=== PATIENT | female | born 1950 | race Caucasian/White ===

== ENCOUNTER → 2016-09-28 | Outpatient (CLI) | payer MEDICARE ==
[2016-09-28 12:34] LABS: Blood Urea Nitrogen 11 mg/dL (7-17); Non-African American GFR(MDRD) >60 (>60 ml/min/1.73 sqM)
--- NOTE | 2016-09-28 14:26 | CT ---
EXAMINATION TYPE: CT abdomen pelvis w con DATE OF EXAM: 09/28/2016 1:54 PM HISTORY: Diarrhea for [address] DLP: 860.7mGycm Automated Exposure Control for Dose Reduction was Utilized. CONTRAST: CT scan of the abdomen and pelvis is performed with IV Contrast, patient injected with 100 mL of Omni paque 300. COMPARISON: None. FINDINGS: LUNG BASES: Linear atelectatic change and/or scarring in both lung bases is present. Heart size is up per limits of normal. LIVER/GB: Cholecystectomy clips are seen. PANCREAS: No significant abnormality is seen. SPLEEN: No significant abnormality is seen. ADRENALS: No significant abnormality is seen. KIDNEYS: Some scattered subcentimeter low dense lesions throughout in both kidneys are too small to c haracterize but presumed benign. BOWEL: The oral contrast only reaches level of the proximal transverse colon. There is no suspicious small or large bowel dilatation. There is fairly moderate prominence of fecal material in the transve rse colon. Surgical sutures from appendectomy are seen at base of cecum. UTERUS/ADNEXA: Uterus is surgically absent or markedly atrophic in appearance. Some scattered pelvic phleboliths are present. LYMPH NODES: No greater than 1cm abdominal or pelvic lymph nodes are appreciated. Scattered subcentim eter lymph nodes throughout the left-sided mesentery are present. OSSEOUS STRUCTURES: There is disc space narrowing with vacuum disc phenomenon at lumbosacral junction . There is some mild facet arthropathy in the lower lumbar spine. OTHER: No significant additional abnormality is seen. IMPRESSION: No bowel obstruction is present. Perhaps mild to moderate mid colonic fecal stasis otherw ise unremarkable study.
--- NOTE | 2016-09-29 09:23 | MM ---
Reason for exam: screening (asymptomatic). Last mammogram was performed 5 months ago. History: Patient is postmenopausal and is nulliparous. Family history of breast cancer in maternal grandmother. Benign ultrasound-guided core biopsy of the right breast, 2016. Benign cyst aspiration of the left breast. Physical Findings: A clinical breast exam by your physician is recommended on an annual basis and results should be correlated with mammographic findings. MG Screening Mammo w CAD Bilateral CC and MLO view(s) were taken. Prior study comparison: September 23, 2015, mammogram, performed at [facility]. September 10, 2014, mammogram, performed at [facility]. The breast tissue is heterogeneously dense. This may lower the sensitivity of mammography. Finding: There are typically benign round calcifications in the left breast. Previous mammotome biopsy in the right breast. There is no discrete abnormality. ASSESSMENT: Benign, BI-RAD 2 RECOMMENDATION: Routine screening mammogram of both breasts in 1 year.
== END | disposition home or self-care (01) ==
LOC: RADMAMWWP 10:25
PROVIDERS: ATTEND Family Medicine
DX: Z12.31 Encounter for screening mammogram for malignant neoplasm of breast (principal); R10.84 Generalized abdominal pain; R19.7 Diarrhea, unspecified
CPT/HCPCS: 82565; 84520; 74177; G0202; Q9967

== ENCOUNTER → 2017-01-05 | Outpatient (CLI) | payer MEDICARE ==
--- NOTE | 2017-01-05 11:16 | USB ---
Reason for exam: additional evaluation requested from prior study. History: Patient is postmenopausal and is nulliparous. Family history of breast cancer in maternal grandmother. Benign ultrasound-guided core biopsy of the right breast, 2016. Benign cyst aspiration of the left breast. Physical Findings: Nurse Summary: bilateral nodularity, all soft, movable (nurse ts). US Breast RT Right breast ultrasound includes all four quadrants, the retroareolar region and axilla. Finding demonstrates a 0.5 x 0.3 x 0.5cm mixed lesion at 11 o'clock, questionable clip and a 1.0 x 0.4 x 0.9cm mixed lesion at 11 o'clock, stable from 03/10/15. These results were verbally communicated with the patient and result sheet given to the patient on 01/05/17. ASSESSMENT: Probably benign, BI-RAD 3 RECOMMENDATION: Ultrasound of the right breast in 6 months.
== END | disposition home or self-care (01) ==
LOC: RADUSWWP 08:40
PROVIDERS: ATTEND Family Medicine
DX: R92.8 Other abnormal and inconclusive findings on diagnostic imaging of breast (principal)

== ENCOUNTER → 2017-03-29 | Outpatient (CLI) | payer MEDICARE ==
--- NOTE | 2017-03-29 10:57 | US ---
EXAMINATION TYPE: US venous doppler duplex LE DATE OF EXAM: 03/29/2017 10:46 AM COMPARISON: NONE CLINICAL HISTORY: Leg Swelling M79.89. h/o dvt in right leg 15 years ago, swelling after car travel r ecently, not on thinners, h/o vein stripping SIDE PERFORMED: TECHNIQUE: The lower extremity deep venous system is examined utilizing real time linear array sonog janina with graded compression, doppler sonography and color-flow sonography. VESSELS IMAGED: External Iliac Vein (EIV) Common Femoral Vein Deep Femoral Vein Greater Saphenous Vein * Femoral Vein Popliteal Vein Small Saphenous Vein * Proximal Calf Veins (* superficial vessels) Right Leg: Appears negative for DVT Left Leg: Appears negative for DVT tech impression to Dr Ayala on cell #[id number] Grayscale, color doppler, spectral doppler imaging performed of the deep veins of the bilateral lower extremities. There is normal flow, compressibility, vascular waveforms. IMPRESSION: No ultrasound evidence for acute DVT in either lower extremity.
== END | disposition home or self-care (01) ==
LOC: RADUSWWP 10:15
PROVIDERS: ATTEND Family Medicine
DX: M79.89 Other specified soft tissue disorders (principal)
CPT/HCPCS: 93970

== ENCOUNTER → 2017-05-29 | Outpatient (CLI) | payer MEDICARE ==
--- NOTE | 2017-05-30 08:23 | USB ---
Reason for exam: follow-up at short interval from prior study. History: Patient is postmenopausal and is nulliparous. Family history of breast cancer in maternal grandmother. Benign ultrasound-guided core biopsy of the right breast, 2016. Benign cyst aspiration of the left breast. Physical Findings: Nurse Summary: all soft, nodular, movable (nurse ts). US Breast RT Technologist: Deb Lew Right breast ultrasound includes all four quadrants, the retroareolar region and axilla. Finding demonstrates a 0.6 x 0.5 x 0.6cm mixed lesion at 11 o'clock and a 0.9 x 0.3 x 0.5cm mixed lesion at 11 o'clock. These results were verbally communicated with the patient and result sheet given to the patient on 05/29/17. ASSESSMENT: Probably benign, BI-RAD 3 RECOMMENDATION: Follow-up diagnostic mammogram of both breasts in 4 months. Back on schedule for September 2017. Ultrasound of the right breast in 4 months.
== END | disposition home or self-care (01) ==
LOC: RADUSWWP 15:12
PROVIDERS: ATTEND Family Medicine
DX: R92.8 Other abnormal and inconclusive findings on diagnostic imaging of breast (principal); R60.0 Localized edema; R06.02 Shortness of breath
CPT/HCPCS: 36415; 83880

== ENCOUNTER → 2017-10-27 | Outpatient (CLI) | payer MEDICARE ==
--- NOTE | 2017-10-27 10:30 | MM ---
Reason for exam: additional evaluation requested from prior study. Last mammogram was performed 1 year and 1 month ago. History: Patient is postmenopausal and is nulliparous. Family history of breast cancer in maternal grandmother. Benign ultrasound-guided core biopsy of the right breast, 2016. Benign cyst aspiration of the left breast. Physical Findings: Nurse did not find any significant physical abnormalities on exam. MG 3D Diag Mammo W/Cad BASIL Bilateral CC and MLO view(s) were taken. Prior study comparison: September 28, 2016, bilateral MG screening mammo w CAD. May 10, 2016, right breast MG 3d diag mammo w/cad RT. The breast tissue is heterogeneously dense. This may lower the sensitivity of mammography. Finding: There are typically benign round calcifications in the left breast. Previous mammotome biopsy in the right breast. These results were verbally communicated with the patient and result sheet given to the patient on 10/27/17. ASSESSMENT: Benign, BI-RAD 2 RECOMMENDATION: Routine screening mammogram of both breasts in 1 year.
== END ==
LOC: RADMAMWWP 08:28
PROVIDERS: ATTEND Family Medicine
DX: R92.8 Other abnormal and inconclusive findings on diagnostic imaging of breast (principal)
CPT/HCPCS: 77066; G0279

== ENCOUNTER → 2018-11-08 | Outpatient (CLI) | payer MEDICARE ==
--- NOTE | 2018-11-08 15:01 | MM ---
Reason for exam: additional evaluation requested from prior study. Last mammogram was performed 1 year ago. History: Patient is postmenopausal and is nulliparous. Family history of breast cancer in paternal grandmother at age 50. Benign ultrasound-guided core biopsy of the right breast, 2016. Benign cyst aspiration of the left breast. Physical Findings: Nurse did not find any significant physical abnormalities on exam. MG 3D Diag Mammo W/Cad BAISL Bilateral CC and MLO view(s) were taken. Prior study comparison: October 27, 2017, bilateral MG 3d diag mammo w/cad BASIL. September 28, 2016, bilateral MG screening mammo w CAD. The breast tissue is heterogeneously dense. This may lower the sensitivity of mammography. Benign calcifications in the left breast. No suspicious abnormality. Right biopsy marker noted. No significant new findings when compared with previous films. These results were verbally communicated with the patient and result sheet given to the patient on 11/08/18. ASSESSMENT: Benign, BI-RAD 2 RECOMMENDATION: Routine screening mammogram of both breasts in 1 year.
--- NOTE | 2018-11-08 15:08 | BD ---
EXAMINATION TYPE: Axial Bone Density DATE OF EXAM: 11/08/2018 CLINICAL HISTORY: Z78.0 Height: 68.5 Weight: 175 FRAX RISK QUESTIONS: Alcohol (3 or more units per day): no Family History (Parent hip fracture): yes, father Glucocorticoids (More than 3mos): no (Ex: prednisone, prednisolone, methylprednisolone, dexamethasone, and hydrocortisone). History of Fracture in Adulthood: yes Secondary Osteoporosis: 1. Type 1 Diabetes: no 2. Hyperthyroidism: no 3. Menopause before 45: yes, total hysterectomy age 38 4. Malnutrition: no 5. Chronic liver disease: no Rheumatoid Arthritis: no Current Tobacco Use: no RISK FACTORS HISTORY OF: History of Wrist Fracture: yes When: about 10 years ago Family History of Osteoporosis: yes Active: yes Diet low in dairy products/other sources of calcium: no Postmenopausal woman: yes Take estrogen and/or progesterone medications: no Lost more than 2 inches in height since high school: no, not more than... states height was about 5 f t 10 inches at one time Frequent falls: no Poor Health: no Hyperparathyroidism: no Adrenal Insufficiency: no MEDICATIONS: Prednisone or other steroids: no Thyroid Medications: no Osteoporosis Medications: not now Which medication: unsure How Long: about 1 year Additional Medications: Vitamin D/Calcium Additional History: EXAM MEASUREMENTS: Bone mineral densitometry was performed using the [employer] System. Bone mineral density as measured about the Lumbar spine is: ----- L1-L4(G/cm2): 1.005 T Score Values are as follows: ----- L2: -2.1 ----- L3: -1.4 ----- L4: -1.5 ----- L1-L4: -1.5 Bone mineral density not done previously at this facility, done previously elsewhere Bone mineral density about the R hip (g/cm2): 0.784 Bone mineral density about the L hip (g/cm2): 0.794 T Score values are as follows: -----R Neck: -1.8 -----L Neck: -1.8 -----R Total: -2.1 -----L Total: -2.1 Bone mineral density not previously done at this facility, done previously elsewhere IMPRESSION: Osteopenia (T Score between -2.5 and -1). There is slightly increased risk of fracture and the patient may be considered for treatment. Re-Screen 2-5 years. NOTE: T-SCORE=SD OF THE YOUNG ADULT MEAN.
== END | disposition home or self-care (01) ==
LOC: RADMAMWWP 13:20
PROVIDERS: ATTEND Internal Medicine
DX: R92.8 Other abnormal and inconclusive findings on diagnostic imaging of breast (principal); M85.80 Other specified disorders of bone density and structure, unspecified site; Z78.0 Asymptomatic menopausal state
CPT/HCPCS: 77080; 77066; G0279; 77062

== ENCOUNTER → 2019-02-13 | Outpatient (CLI) | payer MEDICARE ==
--- NOTE | 2019-02-14 06:56 | US ---
EXAMINATION TYPE: US pelvic complete DATE OF EXAM: 02/13/2019 COMPARISON: CT 2017 CLINICAL HISTORY: R32 URINARY INCONTINENCE. Urinary frequency and urgency x couple months, history of total hysterectomy Uterus: surgically absent Right ovary: surgically absent Left ovary: surgically absent Bilateral adnexa: wnl Posterior cul de sac: wnl Bladder: wnl Bilateral Jets seen: yes Post void residual volume: 12.2ml Normal post void residual (less than 50ml): yes IMPRESSION: Unremarkable study. Study correlated with 2017 CT.
== END | disposition home or self-care (01) ==
LOC: RADUSWWP 15:29
PROVIDERS: ATTEND Internal Medicine
DX: R32 Unspecified urinary incontinence (principal)
CPT/HCPCS: 76857

== ENCOUNTER → 2019-09-19 | Outpatient (CLI) | payer MEDICARE ==
--- NOTE | 2019-09-19 16:58 | CT ---
EXAMINATION TYPE: CT facial bones wo con DATE OF EXAM: 09/19/2019 COMPARISON: NONE HISTORY: Pt had filler injections about 1.5 years ago. Since then, feeling nodules in face, under bot h eyes, and in chin. CT DLP: 636.40 mGycm. Automated Exposure Control for Dose Reduction was Utilized. TECHNIQUE: CT scan of facial bones is performed without contrast, axial images are obtained, coronal reformatted images are also reviewed. FINDINGS: The mandible is intact. Temporomandibular joints are maintained bilaterally. The nasal bone s are intact. The zygomatic arches are intact. The orbital floors and burleson are intact. The globes ar e intact bilaterally. Intraconal fat is preserved. The pterygoid plates are intact. There are a few small mucous retention cysts and/or polyps in the ethmoid sinuses bilaterally axial i mage 55 for reference. Remainder paranasal sinuses are clear. Some punctate densities along skin surface are seen. No suspicious subcutaneous solid or cystic odin s or fluid collections are identified. Visualized brain parenchyma shows mild to moderate generalized cerebral atrophy and mild chronic smal l vessel ischemic changes at the periventricular levels. IMPRESSION: As above.
== END | disposition home or self-care (01) ==
LOC: RADCTMAIN 15:53
PROVIDERS: ATTEND Internal Medicine
DX: R22.0 Localized swelling, mass and lump, head (principal)
CPT/HCPCS: 70486

== ENCOUNTER → 2020-05-27 | Outpatient (CLI) | payer MEDICARE ==
--- NOTE | 2020-05-28 10:40 | MM ---
Reason for exam: screening (asymptomatic). Last mammogram was performed 1 year and 7 months ago. History: Patient is postmenopausal and is nulliparous. Family history of breast cancer in paternal grandmother at age 50 and breast cancer in cousin. Benign ultrasound-guided core biopsy of the right breast, 2016. Benign cyst aspiration of the left breast. Physical Findings: A clinical breast exam by your physician is recommended on an annual basis and results should be correlated with mammographic findings. MG 3D Screening Mammo W/Cad Bilateral CC and MLO view(s) were taken. Prior study comparison: November 08, 2018, bilateral MG 3d diag mammo w/cad BASIL. October 27, 2017, bilateral MG 3d diag mammo w/cad BASIL. There are scattered fibroglandular densities. No significant changes when compared with prior studies. ASSESSMENT: Benign, BI-RAD 2 RECOMMENDATION: Routine screening mammogram of both breasts in 1 year.
== END | disposition home or self-care (01) ==
LOC: RADMAMWWP 13:40
PROVIDERS: ATTEND Family Medicine
DX: Z12.31 Encounter for screening mammogram for malignant neoplasm of breast (principal)
CPT/HCPCS: 77063; 77067

== ENCOUNTER → 2021-05-28 | Outpatient (CLI) | payer MEDICARE ==
--- NOTE | 2021-06-01 13:40 | MM ---
Reason for exam: screening (asymptomatic). Last mammogram was performed 1 year ago. History: Patient is postmenopausal and is nulliparous. Family history of breast cancer in cousin and breast cancer in paternal grandmother at age 50. Benign ultrasound-guided core biopsy of the right breast, 2016. Benign cyst aspiration of the left breast. Physical Findings: A clinical breast exam by your physician is recommended on an annual basis and results should be correlated with mammographic findings. MG 3D Screening Mammo W/Cad Bilateral CC and MLO view(s) were taken. Prior study comparison: May 27, 2020, bilateral MG 3d screening mammo w/cad. November 08, 2018, bilateral MG 3d diag mammo w/cad BASIL. The breast tissue is heterogeneously dense. This may lower the sensitivity of mammography. Previous mammotome biopsy in the right breast. No significant changes when compared with prior studies. ASSESSMENT: Negative, BI-RAD 1 RECOMMENDATION: Routine screening mammogram of both breasts in 1 year.
== END | disposition home or self-care (01) ==
LOC: RADMAMWWP 10:57
PROVIDERS: ATTEND Family Medicine
DX: Z12.31 Encounter for screening mammogram for malignant neoplasm of breast (principal); Z80.3 Family history of malignant neoplasm of breast; Z78.0 Asymptomatic menopausal state
CPT/HCPCS: 77063; 77067